=== PATIENT | male | born 1995 | race Caucasian/White ===

== ENCOUNTER 2023-06-13 21:52 | Emergency (ER) | payer SELFPAY ==
[~2023-06-13] VITALS: Ht 180.3 cm; Wt 85.1 kg
[2023-06-13 22:09] VITALS: BP 150/104; RESP 16; TEMP 98.7; O2SAT 100
[2023-06-13 22:16] VITALS: PULSE 113
== END 2023-06-14 00:05 | disposition left against medical advice (07) ==
LOC: ER 21:52
DX: M25.561 Pain in right knee (principal); Z53.21 Procedure and treatment not carried out due to patient leaving prior to being seen by health care provider
CPT/HCPCS: 99281